=== PATIENT | female | born 1940 | race Caucasian/White ===

== ENCOUNTER 2019-09-24 22:41 | Emergency (ER) | payer OTHER ==
[~2019-09-24] VITALS: Ht 157.5 cm; Wt 63.5 kg
[~2019-09-24 22:41] MED LIST: ALTACE2.5 MG PO; CRESTOR5 MG PO
[2019-09-24] MEDS ORDERED: PEPCID AC20 MG PO (22:50)
[2019-09-25] MEDS ORDERED: CIPRO500 MG PO (03:48)
== END 2019-09-25 04:36 ==
LOC: ER 22:41
DX: T83.098A Other mechanical complication of other urinary catheter, initial encounter (principal); M25.552 Pain in left hip; N39.0 Urinary tract infection, site not specified